=== PATIENT | female | born 1990 ===

== ENCOUNTER 2017-07-15 07:04 | Inpatient (IN) | payer BC ==
[2017-07-15] MEDS ORDERED: Lactated Ringer's 1,000 ML IV SCH (07:30)
--- NOTE | 2017-07-15 07:35 | OBADHP ---
Datetime: 07/15/2017 07:30 Admit Comment, IP Provider: 27 y/o @ 37.4 wks GA with watery discharge, with ctx pain eery 5 mi n denies VB, +FM. Pt rpeorts ctx pain increasing intensity and frequency since last nigh 01/30. OB: P0 CARDIOPULMONARY TECHNOLOGIST: Denies hx of abnromal pap, fibroids, ovarian cyst, STI PMH: Hyothyroid PSH: Deies FHX non contibuory SHX negative etoh/tobacco/drugs MEDS: PNV, Synthyroid NKDA US: Cephalic, Maye 4.3cm, anterior placenta A/P @ 37.4 wks GA IOL for oligohydrmanios admit to L+D npo, ivf admission labs cont toco and efm cytotec pain managament prn Pelvic Type - PN: Adequate Extremities - PN: Normal Abdomen - PN: Normal Back - PN: Normal Breast - PN: Not Done Lungs - PN: Normal Heart - PN: Normal Thyroid - PN: Not Done Neurologic - PN: Not Done HEENT - PN: Normal General - PN: Normal Presentation-Admit: Vertex FHR - Baseline A Provider: 125 Membranes, Provider: Intact Contraction Comments Provider: irregular Gestation - Est Wks by US: 37.4 IP Hx Assessment: The History has been Reviewed and is Current Vital Signs Provider: Reviewed; Within Normal Limits IP Chief Complaint: Suspected ruptured membranes; Other NICHD Variability Prov Fetus A: Moderate 6-25bpm FHR Category Provider Fetus A: Category I NICHD Decel Fetus A IP Provider: None Dilatation, Provider: 1 Effacement, Provider: 50 Station, Provider: -3 Genitourinary Exam: Normal DTRs - PN: Normal EGA AdmitDate IP: 37.4 IP Adm Impression: Term, intrauterine IP Admit Plan: Admit to unit
[2017-07-15 08:41] LABS: BASO % 0.5 % (0.0-2.0); EOS # 0.1 K/uL (0.0-0.7); EOS % 1.3 % (0.0-4.0); HEMATOCRIT 36.2 % (34.0-47.0); LYMPH # 1.7 K/uL (1.0-4.3); LYMPH % 20.3 % (20.0-40.0); MEAN CELL VOLUME 87.6 fL (81.0-99.0); MEAN CORPUSCULAR HEMOGLOBIN 30.9 pg (27.0-31.0); MEAN CORPUSCULAR HGB CONC 35.3 g/dL (33.0-37.0); MEAN PLATELET VOLUME 9.2 fL (7.2-11.7); MONO # 0.7 K/uL (0.0-0.8); MONO % 8.1 % (0.0-10.0); NRBC % 0.1 % (0.0-2.0); RED CELL DISTRIBUTION WIDTH 14.2 % (11.5-14.5); WHITE BLOOD COUNT 8.5 K/uL (4.8-10.8)
[2017-07-15 08:51] LABS: RBC URINE 14 /hpf (0-3); URINE BACTERIA FEW (<OCC); URINE BILIRUBIN NEGATIVE (NEGATIVE); URINE BLOOD 2+ (NEGATIVE); URINE COLOR Straw (YELLOW); URINE GLUCOSE (UA) NORMAL (Normal); URINE KETONE NEGATIVE (NEGATIVE); URINE LEUKOCYTE ESTERASE 1+ Leu/uL (Negative); URINE PROTEIN NEGATIVE (NEGATIVE); URINE UROBILINOGEN NORMAL mg/dL (0.2-1.0); WBC URINE 9 /hpf (0-5)
[2017-07-15 09:50] LABS: ALB/GLOB RATIO 1.1 (1.0-2.1); ALKALINE PHOSPHATASE 89 U/L (38-126); ALT/SGPT 18 U/L (9-52); AST/SGOT 22 U/L (14-36); BILIRUBIN,TOTAL 0.3 mg/dL (0.2-1.3); BLOOD UREA NITROGEN 6 mg/dL (7-17); CALCIUM 8.9 mg/dl (8.6-10.4); CARBON DIOXIDE 19 mmol/L (22-30); CHLORIDE 103 mmol/L (98-107); GFR AFRICAN-AMERICAN > 60; GLUCOSE,RANDOM 82 mg/dL (65-105); POTASSIUM 3.8 mmol/L (3.6-5.2); SODIUM 132 mmol/L (132-148); TOTAL PROTEIN 6.6 g/dL (6.3-8.3)
[2017-07-15] MEDS ORDERED: Oxytocin 30 UNIT 30 UNITS/500 ML BAG IV SCH (11:30)
--- NOTE | 2017-07-15 11:33 | OBPN ---
Datetime: 07/15/2017 11:27 IP Progress Impression: Normal progression of labor IP Procedures: Artificial ROM IP Progress Plan: Continue present management Membranes, Provider: Intact Contraction Comments Provider: q 2 -3 min FHR - Baseline A Provider: 125 Gestation - Est Wks by US: 37.4 IP Progress Note Comment: Pt seen and examined and reports crampign pain, does not desire not medica ion. Pt dneis any lof, vb, +FM VSS VE: 2/50/-3 VTX intact A/P @ 37.4 wks GA IOL For oligohydramnios -s/p cyctoec -For pitocin 12:30pm -pain managment prn Vital Signs Provider: Reviewed; Within Normal Limits FHR Category Provider Fetus A: Category I NICHD Variability Prov Fetus A: Moderate 6-25bpm Dilatation, Provider: 2 Effacement, Provider: 50 Station, Provider: -3 NICHD Decel Fetus A IP Provider: None Datetime: 07/15/2017 07:30 Presentation-Admit: Vertex
[2017-07-15] MEDS ORDERED: Oxytocin 30 UNIT 30 UNITS/500 ML BAG IV ONE (11:45)
--- NOTE | 2017-07-15 13:39 | OBPN ---
Datetime: 07/15/2017 13:34 IP Progress Impression: Normal progression of labor IP Informed Consent Obtain: Vaginal Delivery IP Procedures: Artificial ROM IP Progress Plan: Continue present management Membranes, Provider: Ruptured Amniotic Fluid Color, Provider: Clear Contraction Comments Provider: q 2 min FHR - Baseline A Provider: 135 Gestation - Est Wks by US: 37.4 Presentation-Admit: Vertex IP Progress Note Comment: pt seen and examined and report cramping pain tolerable, denies lof, vb, + FM VSS EM: Cat I TOCO: q 2 min VE: /60-2 AROM clear A/P @ 37.4 wks GA in labor -con tcurrent managment Vital Signs Provider: Reviewed; Within Normal Limits NICHD Variability Prov Fetus A: Moderate 6-25bpm Dilatation, Provider: 4 Effacement, Provider: 60 Station, Provider: -2 NICHD Decel Fetus A IP Provider: None
[2017-07-15] MEDS ORDERED: Bupivacaine HCl 0.25% PF (10 ml) Inj ONE (15:30)
[2017-07-15] MEDS ORDERED: Bupivacaine 0.125%/FentaNYL 200 ML EPI ONE (15:30)
--- NOTE | 2017-07-15 19:39 | OBPN ---
Datetime: 07/15/2017 19:36 IP Progress Impression: Normal progression of labor IP Progress Plan: Continue present management Membranes, Provider: Ruptured FHR - Baseline A Provider: 145 Gestation - Est Wks by US: 37.4 Presentation-Admit: Vertex IP Progress Note Comment: pt seen and exmained reports osme pressure, s/p epidural vss ve /-2 A/P @ 37.4 wks GA in active labor cont current magnnet pitoicn augmentaiton cont tooc adn efm Vital Signs Provider: Reviewed; Within Normal Limits FHR Category Provider Fetus A: Category I NICHD Variability Prov Fetus A: Moderate 6-25bpm Dilatation, Provider: 5 Effacement, Provider: 90 Station, Provider: -2 NICHD Decel Fetus A IP Provider: None
--- NOTE | 2017-07-16 05:18 | OBPN ---
Datetime: 07/16/2017 05:14 IP Progress Impression: Normal progression of labor IP Progress Plan: Continue present management; Anticipate Vaginal Delivery Membranes, Provider: Ruptured Contraction Comments Provider: q 2-3 min FHR - Baseline A Provider: 135 Gestation - Est Wks by US: 37.5 Presentation-Admit: Vertex IP Progress Note Comment: pt seen and examined c/o pressure VE: 10/100/0 EFM: Cat I TOCO: q 2-3 min A/P @ 37.5 wks GA fully diated -start pushing -anticipte -cont current manamgnet Vital Signs Provider: Reviewed NICHD Variability Prov Fetus A: Moderate 6-25bpm Dilatation, Provider: 10 Effacement, Provider: 100 Station, Provider: 0 NICHD Decel Fetus A IP Provider: None
[2017-07-16] MEDS ORDERED: Oxycodone/Acetaminophen 5/325 mg Tab PO PRN (05:55)
[2017-07-16] MEDS ORDERED: Lidocaine 2% Inj (20ml) ONE (07:42)
[2017-07-16] MEDS ORDERED: Lidocaine 2% MPF (5 ml) Inj ONE (08:18)
[2017-07-16] MEDS ORDERED: Midazolam 2 MG/2 ML VIAL ONE (08:23)
--- NOTE | 2017-07-16 08:43 | OBDS ---
DELIVERY PERSONNEL Delivery Doctor: Kan Alicea MD Dish Maker: Sol Bustos RN Anesthesiologist: DR GAMBLE MATERNAL INFORMATION Delivery Anesthesia: Epidural Placenta Cultured: No Maternal Complications: None RN Comments: vacuum [id number] Provider Comments: pt was fuly dilated and pushing, verbal consent given vacumn secondayr to materna l exhaustion (pushign for 3 hours). head engaged, no cervid, 1 pull. Atraumitc delivery of head in LO A position, vacumn remvoed, aturmaic, spontaneoud delivery of aneiror followed by posterior shoulder followed by delivery fo body both oral and nasal passages of the baby were bulb suctioned, umbilical cord was clamped and cut. baby was handed to mother on abodmen with rn assistnce. cord blood and cord gases collected and sent x 2. Spontaneous delivery of intact placenta with membrane. fundus firm. Th ried degree perineal lceratione noted adn repaired with 2-0 and 3-0 chromic, rectal exam performed, s phincter intact. Good hemostaiss, no complicaionc. Live femlae infnat apgsr 9,9 weight of 61lb 12 ounce ebl 350ml LABOR SUMMARY EDC: 08/01/2017 00:00 No. Babies in Womb: 1 Attempted: No Labor Anesthesia: Epidural LABOR INFORMATION Reason for Induction: Oligohydramnios Onset of Labor: 07/15/2017 13:30 Complete Dilatation: 07/16/2017 05:08 Cervical Ripening Agents: Cytotec @ Oxytocin: Augmentation Group B Beta Strep: Negative Steroids Given: None Reason Steroids Not Administered: Not Applicable MEMBRANES Membranes Rupture Method: Artificial Rupture of Membranes: 07/15/2017 13:30 Length of Rupture (hrs): 18.42 Amniotic Fluid Color: Clear Amniotic Fluid Amount: Small Amniotic Fluid Odor: Normal STAGES OF LABOR Stage 1 hrs: 15 Stage 1 min: 38 Stage 2 hrs: 2 Stage 2 min: 47 Stage 3 hrs: 0 Stage 3 min: 9 Total Time in Labor hrs: 18 Total Time in Labor min: 34 VAGINAL DELIVERY Episiotomy: Right Mediolateral Laceration Extension: Third Degree Laceration Type: Perineal Initial Vag Sponge Count: 25 Final Vag Sponge Count: 25 Initial Vag Sharps Count: 3 Final Vag Sharps Count: 3 Sponge Count Correct: Yes Sharps Count Correct: Yes Count Comment: yes BABY A INFORMATION Infant Delivery Date/Time: 07/16/2017 07:55 Method of Delivery: Vaginal Born in Route : No : N/A Forceps: N/A Vacuum Extraction: Successful Shoulder Dystocia : No SHOULDER DYSTOCIA BABY A Delivery Date/Time: 07/16/2017 07:55 PRESENTATION/POSITION BABY A Presentation: Cephalic Breech Presentation: N/A PLACENTA INFORMATION BABY A Placenta Delivery Time : 07/16/2017 08:04 Placenta Method of Delivery: Spontaneous Placenta Status: Delivered SCORES BABY A Heart Rate 1 min: >100 bpm Resp Effort 1 min: Good Cry Reflex Irritability 1 min: Cough or Sneeze or Pulls Away Muscle Tone 1 min: Active Motion Color 1 min: Completely Sonterra Resuscitation Effort 1 min: Tactile Stimulation SCORE 1 MIN: 10 Heart Rate 5 min: >100 bpm Resp Effort 5 min: Good Cry Reflex Irritability 5 min: Cough or Sneeze or Pulls Away Muscle Tone 5 min: Active Motion Color 5 min: Completely Sonterra Resuscitation Effort 5 min: N/A SCORE 5 MIN: 10 INFANT INFORMATION BABY A Gestational Age at Delivery: 37.4 Gestational Status: Term Outcome : Liveborn Condition : Stable Infant Sex: Female IDENTIFICATION/MEDS BABY A ID Band Number: [id number] ID Band Location: Left Leg; Left Arm Sensor Applied: Yes Sensor Number: [id number] Sensor Location : Cord Clamp WEIGHT/LENGTH BABY A Birthweight (gms): 3050 Weight (lb): 6 Infant Weight (oz): 12 Length Inches: 21.00 Length cms: 53.3 CORD INFORMATION BABY A No. Cord Vessels: 3 Nuchal Cord : N/A Cord Blood Taken: Yes Infant Suction: Mouth; Nose
[2017-07-16] MEDS: Oxycodone/Acetaminophen 5/325 mg Tab PO PRN (12:16)
[2017-07-16] MEDS: Multiple Vitamins Tab PO SCH (12:17)
[2017-07-16] MEDS: Benzocaine/Menthol 20%-0.5% Topical Spray (60 ml) TOP PRN (12:18)
[2017-07-17] MEDS: Levothyroxine 50 MCG TAB PO SCH (06:34)
[2017-07-17 06:49] LABS: BASO % 0.3 % (0.0-2.0); EOS # 0.1 K/uL (0.0-0.7); EOS % 0.7 % (0.0-4.0); HEMATOCRIT 32.5 % (34.0-47.0); LYMPH # 2.6 K/uL (1.0-4.3); LYMPH % 16.1 % (20.0-40.0); MEAN CELL VOLUME 87.6 fL (81.0-99.0); MEAN CORPUSCULAR HEMOGLOBIN 29.8 pg (27.0-31.0); MEAN PLATELET VOLUME 8.9 fL (7.2-11.7); MONO # 0.9 K/uL (0.0-0.8); MONO % 5.6 % (0.0-10.0); NRBC % 0.1 % (0.0-2.0); RED CELL DISTRIBUTION WIDTH 14.2 % (11.5-14.5); WHITE BLOOD COUNT 16.2 K/uL (4.8-10.8)
[2017-07-17] MEDS: Multiple Vitamins Tab PO SCH (09:44)
[2017-07-17] MEDS: Oxycodone/Acetaminophen 5/325 mg Tab PO PRN (12:35)
[2017-07-18] MEDS: Levothyroxine 50 MCG TAB PO SCH (06:35)
[2017-07-18] MEDS: Benzocaine/Menthol 20%-0.5% Topical Spray (60 ml) TOP PRN (07:31)
[2017-07-18] MEDS ORDERED: Influenza Vaccine 60 mcg/0.5 mL SYR (4YR UP) IM ONE (08:15)
[2017-07-18] MEDS ORDERED: ceFAZolin IV 2 gm in Dextrose 2 GM/50 ML BAG IVPB ONE (10:30)
[2017-07-18] MEDS: Multiple Vitamins Tab PO SCH (14:13)
[2017-07-19] MEDS: Levothyroxine 50 MCG TAB PO SCH (06:16)
[2017-07-19] MEDS: Multiple Vitamins Tab PO SCH (10:28)
[2017-07-19 21:20] VITALS: BP 128/86; PULSE 71; RESP 18; TEMP 98.4; O2SAT 99
== END 2017-07-19 15:00 | disposition home or self-care (01) | DRG 775 ==
LOC: C.EROB 07:04 → C.9E 07:20 → C.4D 07:31 → C.4M 07-16 11:00
PROVIDERS: ADMIT Obstetrics & Gynecology; ATTEND Obstetrics & Gynecology
PROC: 10E0XZZ Delivery of Products of Conception, External Approach (ICD-10-PCS; principal; 2017-07-16)
PROC: 10D07Z6 Extraction of Products of Conception, Vacuum, Via Natural or Artificial Opening (ICD-10-PCS; 2017-07-16)
PROC: 0DQR0ZZ Repair Anal Sphincter, Open Approach (ICD-10-PCS; 2017-07-16)
PROC: 0W8NXZZ Division of Female Perineum, External Approach (ICD-10-PCS; 2017-07-16)
PROC: 10907ZC Drainage of Amniotic Fluid, Therapeutic from Products of Conception, Via Natural or Artificial Opening (ICD-10-PCS; 2017-07-16)
DX: O41.03X0 Oligohydramnios, third trimester, not applicable or unspecified (principal); O70.20 Third degree perineal laceration during delivery, unspecified; O75.81 Maternal exhaustion complicating labor and delivery; Z37.0 Single live birth; Z3A.37 37 weeks gestation of pregnancy